=== PATIENT | male | born 1980 | race Caucasian/White ===

== ENCOUNTER 2024-01-05 22:12 | Emergency (ER) | payer SELFPAY ==
[2024-01-05] MEDS ORDERED: HYDROcodone/Acetaminophen 10/325 mg Tablet ONE (22:26)
[2024-01-05] MEDS ORDERED: Ondansetron ODT 4 MG TAB ONE (22:27)
== END 2024-01-06 00:17 | disposition home or self-care (01) ==
LOC: CSHERS 22:12
DX: S52.131A Displaced fracture of neck of right radius, initial encounter for closed fracture (principal); F17.210 Nicotine dependence, cigarettes, uncomplicated; W19.XXXA Unspecified fall, initial encounter
CPT/HCPCS: 29105; Q0162